=== PATIENT | male | born 1990 | race Caucasian/White ===

== ENCOUNTER 2016-11-25 16:59 | Emergency (ER) | payer MEDICAID, OTHER ==
[~2016-11-25] VITALS: Wt 79.5 kg
[~2016-11-25 16:59] MED LIST: BACTDS PO; CEPH-443 PO; DOXY-153 PO; HYDR-1666 PO; IBUP-1542 PO; METR500T14 PO
[2016-11-25] MEDS ORDERED: DOXY100T20 PO (18:10)
[2016-11-25] MEDS ORDERED: AZITHROMYCIN 250 MG TAB PO ONE (18:30)
[2016-11-25] MEDS ORDERED: CEFTRIAXONE 250 MG INJ IM ONE (18:30)
[2016-11-25] MEDS ORDERED: LIDOCAINE 1% (MDV) 20 ML INJ SC ONE (18:30)
[2016-11-25 18:52] LABS: URINE BLOOD (Dip) POC Negative (NEGATIVE)
--- NOTE | 2016-11-26 00:36 | ERD ---
ER Documentation Chief Complaint Date/Time DATE: 11/26/16 TIME: 00:32 Chief Complaint RASH ON PENIS, ITCHING, ONSET 1 WEEK HPI This patient is a 26-year-old male presenting to the emergency department with complaint of rash on his penis associated with itching which onset about 1 week ago. He also reports mild pain when urinating. Symptoms are currently mild in severity. He states the rash started as a white pimple but then got larger and opened. He denies any fevers, chills, hematuria, testicular pain, testicular trauma, or other symptoms. ROS All systems reviewed and are negative except as per history of present illness. Medications Home Meds Active Scripts Doxycycline Hyclate* (Doxycycline Hyclate*) 100 Mg Tablet.dr, 100 MG PO BID for 10 Days, #20 TAB Prov:MISHA TOLLIVER PA-C 11/25/16 Ibuprofen* (Motrin*) 600 Mg Tab, 600 MG PO Q6H Y for PAIN AND OR ELEVATED TEMP, #30 TAB Prov:PARKER BROTHERS NP 01/30/16 Cephalexin* (Keflex*) 500 Mg Capsule, 500 MG PO QID for 10 Days, CAP Prov:PARKER BROTHERS NP 01/30/16 Sulfamethoxazole-Trimethoprim* (Bactrim* DS) 800-160 Mg Tab, 1 TAB PO BID for 10 Days, TAB Prov:PARKER BROTHERS NP 01/30/16 Reported Medications Doxycycline Hyclate (Doxycycline Hyclate) 100 Mg Capsule, 1 TAB PO BID 09/20/11 Hydrocodone Bit/Acetaminophen (Vicodin 5/500 Tablet) 1 Tab Tablet, 1 TAB PO Q6HRS PRN 09/20/11 Metronidazole* (Metronidazole*) 500 Mg Tablet, 1 TAB PO Q8HRS 09/20/11 Allergies Allergies: Coded Allergies: No Known Allergies (Verified Allergy, Mild, 09/20/11) PMhx/Soc History of Surgery: No (DENIES HX) Anesthesia Reaction: No Hx Neurological Disorder: No Hx Respiratory Disorders: No Hx Cardiac Disorders: No Hx Psychiatric Problems: No Hx Miscellaneous Medical Probl: No (DENIES HX) Hx Alcohol Use: Yes (OCCASIONAL ) Hx Substance Use: No Hx Tobacco Use: No Physical Exam Vitals Vital Signs Date Time Temp Pulse Resp B/P Pulse Ox O2 Delivery O2 Flow Rate FiO2 11/25/16 17:19 98.5 92 17 127/73 98 Physical Exam Const: Nontoxic, well-appearing male in no acute distress. Head: Atraumatic Eyes: Normal Conjunctiva ENT: Normal External Ears, Nose and Mouth. Neck: Full range of motion..~ No meningismus. Exam: Scrotum: Normal Testes/Epid: Non-tender w/ normal lie Lymph: Mild inguinal lymphadenopathy noted bilaterally. Discharge: None Penis: There was an ulceration noted to the glans penis. There is no discharge noted. There were no vesicles noted. Abd: Soft, non tender, non distended. Normal bowel sounds Skin: No petechiae or rashes Back: No midline or flank tenderness Ext: No cyanosis, or edema Neur: Awake and alert Psych: Normal Mood and Affect Results 24 hrs Laboratory Tests Test 11/25/16 18:56 Bedside Urine pH (LAB) 5.5 Bedside Urine Protein (LAB) Negative Bedside Urine Glucose (UA) Negative Bedside Urine Ketones (LAB) Negative Bedside Urine Blood Negative Bedside Urine Nitrite (LAB) Negative Bedside Urine Leukocyte Esterase (L Negative Current Medications Medications (Trade) Dose Ordered Sig/Franca Route PRN Reason Start Time Stop Time Status Last Admin Dose Admin Azithromycin (Zithromax) 1,000 mg ONCE ONCE PO 11/25/16 18:30 11/25/16 18:31 DC 11/25/16 18:54 Ceftriaxone Sodium (Rocephin) 250 mg ONCE ONCE IM 11/25/16 18:30 11/25/16 18:31 DC 11/25/16 18:55 Lidocaine (Xylocaine 1% (Mdv) 20 ml) 20 ml ONCE ONCE SC 11/25/16 18:30 11/25/16 18:31 DC 11/25/16 18:55 Procedures/MDM 26-year-old male presenting to the emergency department with complaints of rash to his penis. Examination and history is consistent with possible sexually transmitted infection. Differential diagnoses include but are not limited to herpes, chlamydia, gonorrhea, syphilis, and others. The patient was tested in the department for chlamydia and gonorrhea. The patient was also treated in the department empirically for chlamydia and gonorrhea with azithromycin and Rocephin. Urinalysis is negative for urinary tract infection, proteinuria, or hematuria. The patient understood the discharge plan of diagnosis. The patient is given counseling regarding sexually transmitted infection prevention. He was advised to have his partner treated. The patient's questions and concerns were addressed. I have low suspicion for acute abdomen, septicemia, or other emergent conditions. Close follow-up with the primary care physician advised. Strict ER return precautions were discussed and the patient demonstrated good understanding. Departure Diagnosis: Primary Impression: Penile ulcer Condition: Fair Patient Instructions: What Are Sexually Transmitted Diseases (STDs)? Referrals: TASNEEM ZAYAS MD Additional Instructions: Follow up with your PCP within the next 1-3 days for a repeat evaluation and a possible referral to a specialist, if required. Return the the emergency department immediately if symptoms worsen or change. If you have any questions regarding medications, ask your pharmacist or us before you leave. If any adverse reactions, occur while taking your medications, discontinue the treatment and return to the emergency department immediately. If any new or worsening symptoms, uncontrolled fevers, or other unexplained symptoms occur, return to the emergency department immediately. Take your medications as directed, and complete the entire course of treatment. MISHA TOLLIVER PA-C Nov 26, 2016 00:36
== END 2016-11-25 19:30 | disposition home or self-care (01) ==
LOC: FTE 16:59
DX: N48.5 Ulcer of penis (principal); R30.9 Painful micturition, unspecified
CPT/HCPCS: 81003; 86592; 87086; 87591; J0696; 96372